=== PATIENT | female | born 1960 | race Caucasian/White ===

== ENCOUNTER 2019-06-12 18:10 | Emergency (ER) | payer OTHER ==
[~2019-06-12] VITALS: Ht 162.6 cm; Wt 69.8 kg
[2019-06-12] MEDS ORDERED: MELOXICAM15 MG PO (18:25)
[2019-06-12] MEDS ORDERED: GABAPENTIN600 M1 PO (18:25)
[2019-06-12] MEDS ORDERED: TOPAMAX100 MG PO (18:25)
[2019-06-12] MEDS ORDERED: LEVO-T25 MCG PO (18:25)
[2019-06-12] MEDS ORDERED: MICARDIS40 MG PO (18:26)
[2019-06-12] MEDS ORDERED: TIZANIDINE HCL4 M1 PO (18:26)
[2019-06-12] MEDS ORDERED: RESTASIS1 EACH (18:28)
[2019-06-12] MEDS ORDERED: FLEXERIL PO (18:37)
[2019-06-12] MEDS ORDERED: NORCO 5-325 TA1 EAC1 PO (18:37)
[2019-06-12 18:41] VITALS: BP 158/75
== END 2019-06-12 18:42 | disposition home or self-care (01) ==
LOC: M.ERS 18:10
DX: M54.6 Pain in thoracic spine (principal); I10 Essential (primary) hypertension; E03.9 Hypothyroidism, unspecified; G43.909 Migraine, unspecified, not intractable, without status migrainosus; M19.90 Unspecified osteoarthritis, unspecified site; M79.7 Fibromyalgia; Z90.49 Acquired absence of other specified parts of digestive tract; Z88.0 Allergy status to penicillin

== ENCOUNTER 2019-08-13 09:39 | Emergency (ER) | payer OTHER ==
[~2019-08-13] VITALS: Ht 162.6 cm; Wt 64.9 kg
[~2019-08-13 09:39] MED LIST: FLEXERIL PO; GABAPENTIN600 M1 PO; LEVO-T25 MCG PO; MELOXICAM15 MG PO; MICARDIS40 MG PO; NORCO 5-325 TA1 EAC1 PO; RESTASIS1 EACH; TIZANIDINE HCL4 M1 PO; TOPAMAX100 MG PO
[2019-08-13] MEDS ORDERED: HYDROCODON-ACE1 EAC7 PO (10:01)
[2019-08-13 10:35] VITALS: BP 142/70
== END 2019-08-13 10:36 | disposition home or self-care (01) ==
LOC: M.ERS 09:39
DX: G89.29 Other chronic pain (principal); M54.6 Pain in thoracic spine; M19.90 Unspecified osteoarthritis, unspecified site; M79.7 Fibromyalgia; G43.909 Migraine, unspecified, not intractable, without status migrainosus; E03.9 Hypothyroidism, unspecified; I10 Essential (primary) hypertension; G62.9 Polyneuropathy, unspecified; Z90.89 Acquired absence of other organs; Z88.0 Allergy status to penicillin